=== PATIENT | male | born 2000 ===

== ENCOUNTER 2023-03-21 21:13 | Emergency (ER) | payer OTHER, SELFPAY ==
[2023-03-21 21:32] VITALS: BP 107/55; PULSE 113; RESP 18; TEMP 39.4; O2SAT 97; BMI 25.9
[2023-03-21 22:05] VITALS: BP 86/42
[2023-03-21 22:07] LABS: Hematocrit 42.6 % (42.0-52.0); Hemoglobin 14.5 g/dl (14.0-18.0); Mean Corpuscular Hemoglobin 29.9 pg (27.0-33.0); Mean Corpuscular Volume 87.8 fL (80.0-98.0); Mean Platelet Volume 8.9 fL (9.4-12.4); Platelet Count 241 X10*3/uL (160-400); Red Blood Count 4.85 X10*6/uL (4.60-5.80); Red Cell Distribution Width 12.5 % (11.0-16.0); White Blood Count 9.3 X10*3/uL (4.8-10.8)
[2023-03-21 22:14] VITALS: BP 113/63; PULSE 98; RESP 18
[2023-03-21 22:18] LABS: COVID-19 Test Negative (Negative); IDNOW Serial# BCCEAD1C
--- NOTE | 2023-03-21 22:31 | PC.NURSE ---
pt back to 22h bed @ 2220. pt placed on monitor. dr dia made aware of pt status and near syncope as well ast temp of 103.0, hr 98, bp 113/63. per md place iv line no additional orders at this time
[2023-03-21 22:33] LABS: Alanine Aminotransferase 21 U/L (0-40); Albumin Level 4.1 g/dL (3.5-5.0); Alkaline Phosphatase 101 U/L (39-117); Anion Gap 12 (12-20); Aspartate Amino Transferase 23 U/L (5-37); Bilirubin Total 0.3 mg/dL (0.0-1.0); Blood Urea Nitrogen 11 mg/dL (9-16); Calcium 9.5 mg/dL (8.4-10.2); Carbon Dioxide 25 mmol/L (22-29); Chloride 102 mmol/L (96-108); Creatinine Clr Calc Pharmacy 127.2; Estimated Glomerular Filt Rate > 60; Glucose Random 115 mg/dL (60-115); Sodium 135 mmol/L (135-145); Total Protein 7.5 g/dL (6.5-8.0)
--- NOTE | 2023-03-21 22:44 | ED_ITS ---
HPI - General Adult General Chief complaint: General Medical Stated complaint: ?UTI/Fever Time Seen by Provider: 03/21/23 22:44 Source: patient Mode of arrival: ambulatory Limitations: no limitations History of Present Illness HPI narrative: patient no significant medical history complaining of sore throat fever T-max of 103 degrees since a.m. today also has dysuria for last 7 days without any frequency or flank pain no nausea no vomiting also complaining of sore throat and headache no other family member sick patient did go for hiking about 14 days ago lot of mosquitoes no other friend with fever denies any cough Related Data Previous Rx's Medication Instructions Recorded doxycycline hyclate 100 mg tablet 100 mg PO BID #20 tabs 03/22/23 ibuprofen 600 mg tablet 600 mg PO Q6H PRN fever or pain 03/22/23 #30 tabs Allergies Allergy/AdvReac Type Severity Reaction Status Date / Time No Known Allergies Allergy Verified 03/21/23 21:37 Review of Systems Review of Systems: Yes all other systems are reviewed and are negative [facility] Social History Social History Smoked in Last 30 Days: Yes Use of substances other than those prescribed or required for medical reasons: Yes Substance Use Type: Marijuana Advance Directives: No Advance Directives Information Provided: No Physical Exam ED Vital Signs: Vital Signs - 24 hr 03/21/23 21:32 03/21/23 22:05 03/21/23 22:14 Temperature 103 F H Pulse Rate 113 H 98 Respiratory Rate 18 18 Blood Pressure 107/55 L 86/42 L 113/63 Pulse Oximetry 97 Oxygen Delivery Method Room Air 03/22/23 00:18 Temperature 99.4 F Pulse Rate 98 Respiratory Rate 17 Blood Pressure Pulse Oximetry 98 Oxygen Delivery Method Room Air BMI result Body Mass Index 25.9 Appearance: Alert. Oriented X3. No acute distress. Eyes: no pallor or icterus ENT: Pharynx slightly erythematous Oral Mucosa moist Neck: Normal inspection. Neck supple. CVS: Normal heart rate and rhythm. Pulses normal. Respiratory: No respiratory distress. Equal air entry bilateral, no wheezing/rales/rhonchi Abdomen: Soft and nontender. Bowel sounds are present, no mass palpable, no CVA tenderness Skin: Skin warm and dry. Normal skin color. Normal skin turgor. Extremities: No lower extremity edema. No calf tenderness Neuro: Oriented X 3. No motor deficit. No sensory deficit.No cerebellar signs , cranial nerves II-XII intact Medications Administered Discontinued Medications Generic Name Dose Route Start Last Admin Trade Name [place] PRN Reason Stop Dose Admin Acetaminophen 975 mg 03/21/23 23:03 03/21/23 23:43 Acetaminophen 325 Mg Tablet PO 03/21/23 23:04 975 mg ONCE ONE Administration Sodium Chloride 1,000 mls @ 999 mls/hr 03/21/23 23:02 03/22/23 01:43 Ns IV 03/22/23 00:02 Infused .Q1H1M ONE Infusion Ketorolac Tromethamine 30 mg 03/21/23 23:02 03/21/23 23:43 Ketorolac Tromethamine 30 Mg/Ml Vial IVPUSH 03/21/23 23:03 30 mg ONCE ONE Administration Medical Decision Making Medical Decision Making [facility] Narrative: patient with fever etiology not very clear started on doxycycline pending further cultures Differential Diagnosis Differential Diagnoses: The differential diagnosis associated with the presentation includes viral fever/ mosquito bite disease / COVID/pneumonia / UTI /Lyme disease Lab Data [facility] Lab Attestation statement: I reviewed the patient's lab results. 03/21/23 21:56 03/21/23 21:56 Labs: Lab Results 03/21/23 03/21/23 03/21/23 Range/Units 21:56 21:56 21:56 WBC 9.3 (4.8-10.8) X10*3/uL RBC 4.85 (4.60-5.80) X10*6/uL Hgb 14.5 (14.0-18.0) g/dl Hct 42.6 (42.0-52.0) % MCV 87.8 (80.0-98.0) fL MCH 29.9 (27.0-33.0) pg MCHC 34.0 (31.0-36.0) g/dl RDW 12.5 (11.0-16.0) % Plt Count 241 (160-400) X10*3/uL MPV 8.9 L (9.4-12.4) fL Absolute Nucleated RBC 0.000 (0.0-0.012) X10*3/uL Nucleated RBC % (auto) 0.0 (0.0-0.2) /100WBC Sodium 135 (135-145) mmol/L Potassium 4.0 (3.3-5.1) mmol/L Chloride 102 (96-108) mmol/L Carbon Dioxide 25 (22-29) mmol/L Anion Gap 12 (12-20) BUN 11 (9-16) mg/dL Creatinine 0.94 (0.5-1.4) mg/dL Estim Creat Clear Calc 127.2 Estimated GFR > 60 Random Glucose 115 (60-115) mg/dL Calcium 9.5 (8.4-10.2) mg/dL Total Bilirubin 0.3 (0.0-1.0) mg/dL AST 23 (5-37) U/L ALT 21 (0-40) U/L Alkaline Phosphatase 101 (39-117) U/L Total Protein 7.5 (6.5-8.0) g/dL Albumin 4.1 (3.5-5.0) g/dL Urine Color Urine Appearance Urine pH (5.0-9.0) Ur Specific [place] (1.005-1.025) Urine Protein (Neg-Trace) mg/dL Urine Glucose (UA) (Negative) mg/dL Urine Ketones (Negative) mg/dL Urine Blood (Negative) Urine Nitrite (Negative) Ur Leukocyte Esterase (Negative) Urine RBC (0-2) /HPF Urine WBC (0-5) /HPF Ur Squamous Epith Cells (0-2) /HPF Urine Bacteria (None Seen) Hyaline Casts (0-2) /LPF COVID-19 (TIMOTEO) Negative (Negative) COVID-19 Clin Com See Note S. pyogenes GrpA ZENOBIA (Negative) 03/21/23 03/22/23 Range/Units 23:55 00:42 WBC (4.8-10.8) X10*3/uL RBC (4.60-5.80) X10*6/uL Hgb (14.0-18.0) g/dl Hct (42.0-52.0) % MCV (80.0-98.0) fL MCH (27.0-33.0) pg MCHC (31.0-36.0) g/dl RDW (11.0-16.0) % Plt Count (160-400) X10*3/uL MPV (9.4-12.4) fL Absolute Nucleated RBC (0.0-0.012) X10*3/uL Nucleated RBC % (auto) (0.0-0.2) /100WBC Sodium (135-145) mmol/L Potassium (3.3-5.1) mmol/L Chloride (96-108) mmol/L Carbon Dioxide (22-29) mmol/L Anion Gap (12-20) BUN (9-16) mg/dL Creatinine (0.5-1.4) mg/dL Estim Creat Clear Calc Estimated GFR Random Glucose (60-115) mg/dL Calcium (8.4-10.2) mg/dL Total Bilirubin (0.0-1.0) mg/dL AST (5-37) U/L ALT (0-40) U/L Alkaline Phosphatase (39-117) U/L Total Protein (6.5-8.0) g/dL Albumin (3.5-5.0) g/dL Urine Color Yellow Urine Appearance Clear Urine pH 7.5 (5.0-9.0) Ur Specific [place] 1.015 (1.005-1.025) Urine Protein Negative (Neg-Trace) mg/dL Urine Glucose (UA) Negative (Negative) mg/dL Urine Ketones Negative (Negative) mg/dL Urine Blood Negative (Negative) Urine Nitrite Negative (Negative) Ur Leukocyte Esterase Negative (Negative) Urine RBC 0-2 (0-2) /HPF Urine WBC 0-5 (0-5) /HPF Ur Squamous Epith Cells 0-2 (0-2) /HPF Urine Bacteria None Seen (None Seen) Hyaline Casts 0-2 (0-2) /LPF COVID-19 (TIMOTEO) (Negative) COVID-19 Clin Com S. pyogenes GrpA ZENOBIA Negative (Negative) Discharge Plan Discharge Clinical Impression: Fever Patient Disposition: Home, Self-Care Instructions: Fever in Adults (ED) Additional Instructions: drink plenty of fluids take Tylenol/ Motrin for fever antibiotic as prescribed for possible mosquito/tick bite diseases as a cause for fever follow-up with your PCP Prescriptions: New ibuprofen 600 mg tablet 600 mg PO Q6H PRN (Reason: fever or pain) Qty: 30 0RF doxycycline hyclate 100 mg tablet 100 mg PO BID Qty: 20 0RF Stand Alone Forms: Work/School Release
[2023-03-21] MEDS: Acetaminophen 325 MG TABLET 975 MG PO (23:43)
[2023-03-21] MEDS: Ketorolac Tromethamine 30 MG/ML VIAL IVPUSH (23:43)
[2023-03-21] MEDS: 0.9 % Sodium Chloride 1,000 ML 999 ML IV (23:44)
[2023-03-22 00:18] VITALS: PULSE 98; RESP 17; TEMP 37.4; O2SAT 98
[2023-03-22 00:19] LABS: IDNOW Serial# 6674DD1D; Strep A Nucleic Acid Negative (Negative)
[2023-03-22 00:58] LABS: Appearance Urine Clear; Color Urine Yellow; Glucose Urine UA Negative (Negative); Leukocyte Esterase Urine Negative (Negative); Nitrite Urine Negative (Negative); PH 7.5 (5.0-9.0); Specific Gravity - Urine 1.015 (1.005-1.025); Urine Blood Negative (Negative); Urine Ketones Negative (Negative); Urine Protein Negative (Neg-Trace)
[2023-03-22 01:03] LABS: Bacteria Urine None Seen (None Seen); Hyaline Casts Urine 0-2 /LPF (0-2); RBC Urine 0-2 /HPF (0-2); Squamous Epithelial Cell Urine 0-2 /HPF (0-2); WBC Urine 0-5 /HPF (0-5)
[2023-03-22 02:00] VITALS: BP 99/53; PULSE 92; RESP 12; TEMP 36.8; O2SAT 98
[2023-03-22] MEDS: Doxycycline Monohydrate 100 MG CAPSULE PO (02:00)
--- NOTE | 2023-03-22 02:10 | PC.NURSE ---
pt ambulatory to restroom. pt calm and cooperative. pt medicated according to gloria
--- NOTE | 2023-03-22 02:23 | PC.NURSE ---
pt ambulatory at discharge. pt calm and cooperative. significant other at bedside. iv removed at discharge. pt provided with discharge packet and work note. pt verbalized understanding of discharge plan
[2023-03-30 15:23] LABS: Babesia IgG <1:64 titer (<1:64); Babesia IgM <1:20 titer (<1:20)
[2023-03-30 15:38] LABS: A. Phagocytophilum Ab IgG <1:64 (<1:64); A. Phagocytophilum Ab IgM <1:20 (<1:20); E. Chaffeensis Ab IgG <1:64 (<1:64); E. Chaffeensis Ab IgM <1:20 (<1:20)
== END 2023-03-22 02:25 | disposition home or self-care (01) ==
PROVIDERS: Emergency Provider Internal Medicine
DX: R50.9 Fever, unspecified (principal); R30.0 Dysuria; Z20.822 Contact with and (suspected) exposure to COVID-19; Z20.828 Contact with and (suspected) exposure to other viral communicable diseases; Z79.899 Other long term (current) drug therapy
CPT/HCPCS: 36415; 80053; 81001; 85027; 86666; 86753; 87635; 87651; 96361; 96374; 99284; J1885

== ENCOUNTER 2023-11-18 14:43 | Emergency (ER) | payer OTHER, SELFPAY ==
--- NOTE | 2023-11-18 14:45 | ED_ITS ---
HPI - Animal Bite General Chief Complaint: Animal Bite Stated Complaint: Dog bite- work inj Time Seen by Provider: 11/18/23 14:49 Source: patient Mode of arrival: ambulatory Limitations: no limitations History of Present Illness HPI narrative: Patient is a 23-year-old male who presents emergency department for evaluation of dog bite to the right proximal medial calf at work. The dog is unknown to him. He asked the dog's signing teacher whether is up-to-date on vaccinations, he states that they reported yes but appeared very anxious and tearful. He expresses concern that they may not have been truthful about this. Initially had bleeding which is now controlled. He is able to ambulate without difficulty. Unaware of date of last tetanus vaccination, states he has not had any vaccines since he was approximately 15 years old. Related Data Previous Rx's ?Medication ?Instructions ?Recorded doxycycline hyclate 100 mg tablet 100 mg PO BID #20 tabs 03/22/23 ibuprofen 600 mg tablet 600 mg PO Q6H PRN fever or pain 03/22/23 #30 tabs amoxicillin 875 mg-potassium 1 tab PO BID #14 tabs 11/18/23 clavulanate 125 mg tablet Allergies Allergy/AdvReac Type Severity Reaction Status Date / Time No Known Allergies Allergy Verified 11/18/23 14:48 Review of Systems Review of Systems: Yes all other systems are reviewed and are negative PMFSH Past Medical History Attestation statement: The following information was validated with the patient. Source: old records reviewed Social History Social History Substance Use Type: Marijuana Advance Directives: No Advance Directives Information Provided: No Physical Exam ED Vital Signs: Vital Signs - 24 hr 11/18/23 14:46 11/18/23 17:36 Temperature 98 F 98.5 F Pulse Rate 100 90 Respiratory Rate 19 18 Blood Pressure 127/84 110/70 Pulse Oximetry 100 97 Oxygen Delivery Method Room Air Room Air BMI result Body Mass Index 27.3 Appearance: Alert.?Oriented to person, place and time. No acute distress.?Normal affect. Eyes: Pupils equal, round and reactive to light.? ENT: Pharynx normal.?? Neck: Normal inspection.? Neck supple.?? CVS: Heart sounds normal. Normal heart rate and rhythm.? Pulses normal.?? Respiratory: No respiratory distress.? Lung sounds clear to auscultation bilaterally?? Skin: Skin warm and dry.? Normal skin color.? Right proximal medial calf with two different 1cm lacerations from reported bite, without surrounding erythema or active bleeding Extremities: No lower extremity edema.? No calf ttp? Neuro: Moves all extremities spontaneously. Sensation intact bilaterally. . Ambulates with normal steady gait. Medications Administered Discontinued Medications Generic Name Dose Route Start Last Admin Trade Name Freq PRN Reason Stop Dose Admin Amoxicillin/Clavulanate Potassium 875 mg 11/18/23 14:52 11/18/23 16:21 Amoxicillin/Potassium Clav 875 Mg Tablet PO 11/18/23 14:53 875 mg ONCE ONE Administration Diphtheria/Tetanus/Acell Pertussis 0.5 ml 11/18/23 14:52 11/18/23 16:21 Diphth,Pertus(Acell),Tet Adult 0.5 Ml Syringe IM 11/18/23 14:53 0.5 ml .ONCE ONE Administration Rabies Immune Globulin 1,723.66 unit 11/18/23 14:52 11/18/23 17:19 Rabies Immune Globulin/Pf 900 Unit/3 Ml Vial 20 unit/kg (1723.66 unit) 11/18/23 14:53 1,723.66 unit IM Administration ONCE ONE Rabies Vaccine Human Diploid Cell 1 ml 11/18/23 14:52 11/18/23 16:22 Rabies Vaccine, Human Diploid (Imovax) 1 Ml Vial IM 11/18/23 14:53 1 ml .ONCE ONE Administration Medical Decision Making Medical Decision Making MDM Narrative: patient is a 23-year-old male who presents emergency department for evaluation of dog bite to the right lower extremity as per HPI. Ambulatory with steady gait, no active bleeding, clear low suspicion for acute fracture or osseous abnormality. Vaccination status of dog is unknown, therefore patient is amenable to rabies vaccination and he will require immunoglobulin as well. Tetanus vaccine was updated. Course of antibiotics sent to pharmacy. Discussed strict return precautions, worrisome signs and symptoms that would warrant re- evaluation in the emergency department. All questions answered. Stable for discharge. Differential Diagnosis Differential Diagnoses: The differential diagnosis associated with the presentation includes ( Dog bite, rabies exposure, tetanus exposure, unlikely acute fracture) Prescription Management I considered prescription management with: Pain Medication ( acetaminophen/ibuprofen) and Antibiotic Discharge Plan Discharge Clinical Impression: Dog bite Patient Disposition: Home, Self-Care Instructions: Animal Bite (ED) Additional Instructions: Follow the instructions provided regarding follow-up for your rabies vaccination series. Your tetanus vaccine was updated today. Complete entire course of antibiotics as prescribed. Follow-up with your primary care provider. Prescriptions: New amoxicillin-pot clavulanate 875-125 mg tablet 1 tab PO BID Qty: 14 0RF No Action ibuprofen 600 mg tablet 600 mg PO Q6H PRN (Reason: fever or pain) Qty: 30 0RF doxycycline hyclate 100 mg tablet 100 mg PO BID Qty: 20 0RF Referrals: Physician,None [Primary Care Provider] - Interventions: ED Discharge Assessment Last Done: 11/18/23 17:36 Discharge Date/Time: 11/18/23 17:37 Print Language: Latvian
[2023-11-18 14:46] VITALS: BP 127/84; PULSE 100; RESP 19; TEMP 36.6; O2SAT 100; BMI 27.3
[2023-11-18] MEDS: Diphth,Pertus(ACell),Tet Adult 0.5 ML SYRINGE IM (16:21)
[2023-11-18] MEDS: Amoxicillin/Potassium Clav 875 MG TABLET PO (16:21)
[2023-11-18] MEDS: Rabies Vaccine, Human Diploid (Imovax) 1 ML VIAL IM (16:22)
[2023-11-18] MEDS: Rabies Immune Globulin/PF 900 UNIT/3 ML VIAL 1723.66 UNIT IM (17:19)
[2023-11-18 17:36] VITALS: BP 110/70; PULSE 90; RESP 18; TEMP 36.9; O2SAT 97
== END 2023-11-18 17:37 | disposition home or self-care (01) ==
PROVIDERS: Emergency Provider Emergency Medicine
DX: S81.851A Open bite, right lower leg, initial encounter (principal); W54.0XXA Bitten by dog, initial encounter; Y93.89 Activity, other specified; Y92.007 Garden or yard of unspecified non-institutional (private) residence as the place of occurrence of the external cause; Y99.0 Civilian activity done for income or pay; Z20.3 Contact with and (suspected) exposure to rabies; Z23 Encounter for immunization
CPT/HCPCS: 90375; 90471; 90675; 90715; 96372; 99283; 99284

== ENCOUNTER 2023-12-01 10:00 | Outpatient (RCR) | payer OTHER, SELFPAY ==
[2023-11-21 11:38] VITALS: BP 126/74; PULSE 85; RESP 16; TEMP 36.9; O2SAT 97
[2023-11-21] MEDS: Rabies Vaccine, Human Diploid (Imovax) 1 ML VIAL IM (11:43)
[2023-11-25 10:17] VITALS: BP 126/85; PULSE 80; RESP 16; TEMP 36.8; O2SAT 98; BMI 27.3
[2023-11-25] MEDS: Rabies Vaccine, Human Diploid (Imovax) 1 ML VIAL IM (10:36)
--- NOTE | 2023-11-25 11:10 | PC.NURSE ---
Patient arrived for day 7 Rabies Vaccination. Patient unable to locate his documentation card. New one obtained from the ED and Day 7 documentation and lot number completed. Educated patient on importance of keeping this card safe and bringing it to next appointment. No current order in [facility] for medication to be administered on todays date. Unscheduled dose documented by this nurse. Vaccination administered, tolerated well.
[2023-12-01 10:14] VITALS: PULSE 77; RESP 14; TEMP 37; O2SAT 96
[2023-12-01] MEDS: Rabies Vaccine, Human Diploid (Imovax) 1 ML VIAL IM (10:16)
[2023-12-01 10:21] VITALS: BP 126/63; PULSE 77; RESP 14; TEMP 37; O2SAT 96
== END 2023-12-01 15:28 | disposition home or self-care (01) ==
LOC: HO.INF 10:00
PROVIDERS: Visit Provider Nurse Practitioner Family
DX: Z20.3 Contact with and (suspected) exposure to rabies (principal); T14.8XXD Other injury of unspecified body region, subsequent encounter; W54.0XXD Bitten by dog, subsequent encounter
CPT/HCPCS: 90471; 90675; 96372